=== PATIENT | female | born 1990 | race Caucasian/White ===

== ENCOUNTER 2023-10-08 18:20 | Inpatient (IN) | payer BC, SELFPAY ==
[2023-10-08 19:03] VITALS: BP 128/83; PULSE 85; PULSE 86; RESP 16; TEMP 36.6; O2SAT 98
[2023-10-08 19:08] VITALS: PULSE 87; O2SAT 97
[2023-10-08 19:09] VITALS: BMI 33.9
[2023-10-08 19:13] VITALS: PULSE 86; O2SAT 98
--- NOTE | 2023-10-08 20:23 | PM.OBHPLI ---
OB - H&P: HPI Labor/Induction History of Present Illness Time Seen by Provider: 20:23 Date Seen: 10/08/23 Chief Complaint: The patient is a 32 year old 1 para 0 at 39 weeks gestation by LMP c/w 8w3d US, who presents for induction due to chronic hypertension, well controlled this . Chief complaint: Maternity : 1 Date of last menstrual period: 01/08/23 Estimated date of delivery: 10/15/23 Gestational age based on last menstrual period: 39 Indications for induction: maternal hypertension Narrative: Erica Curry is a 32 year old 1 para 0 at 39 weeks gestation by LMP c/w 8w3d US, who presents for induction due to chronic hypertension, well controlled this . Pt has been on baby asa due to chronic hypertension. No headaches, vision changes or abdominal pain. No contractions. Good FM. No recent illness. History of Present Dating criteria: based on LMP care: good care Ultrasounds: normal 1st trimester US and abnormal US findings ( anatomy with echogenic intracardiac focus. Level 2 wnl. Parents declined serum screening) complications: chronic hypertension Labs Blood type: A (+) positive Rubella: immune RPR/VDLR: nonreactive GBS status: negative HBsAG: negative Meds Home Medications and Allergies Home Medications ?Medication ?Instructions ?Recorded ?Confirmed ?Type aspirin 81 mg chewable tablet 81 mg PO DAILY 10/08/23 10/08/23 History (Aspirin Childrens) vit no.95-ferrous 1 tab PO DAILY 10/08/23 10/08/23 History fumarate 28 mg-folic acid 800 mcg tablet () Allergies Allergy/AdvReac Type Severity Reaction Status Date / Time cefaclor [From [facility]] Allergy Intermediate Verified 10/08/23 19:12 OB - H&P: Exam Physical Exam: Vital signs: Temp Pulse Resp BP Pulse Ox 98 F 85 16 128/83 98 10/08/23 19:03 10/08/23 19:03 10/08/23 19:03 10/08/23 19:03 10/08/23 19:13 Constitutional: Constitutional: no acute distress and cooperative Routine HEENT Exam: Head: Present normal inspection Eye: Present normal appearance ENT: Present mucous membranes moist Routine Neck Exam: Neck: Present normal inspection; Absent lymphadenopathy, tenderness or thyromegaly Detailed Neck Exam: Thyroids: Thyroid: Present normal Routine Respiratory Exam: Respiratory: Present CTA bilaterally; Absent crackles or wheezes Routine Cardiovascular Exam: Cardiovascular: RRR Routine Exam: External: Present normal external exam Detailed Labor and Delivery Exam: Patient Gravid: Yes Dilation (cm): 1 Effacement (%): 20 Cervix position: anterior Consistency: medium Fetus (Single): Station: -3 Amniotic Membrane Status: intact Heart Rate Baseline: 130 Monitor Accelerations: Present Monitor Decelerations: None Coffin Maker Variability: Moderate (6-25) Routine Extremities Exam: Extremities: Absent pedal edema OB - Problem Based A/P Additional Plan (1) Chronic hypertension: Problem details: Controlled without meds throughout Status: Acute (2) Term : Status: Acute (3) Chronic hypertension affecting : Status: Acute Plan 39wk induction due to chronic htn, stage 1. -GBS negative -Cook catheter placed without difficulty -discussed inductions and variability. All ?'s answered Delivery/Labor/Induction Plan Plan: induction Induction method: Intracervical balloon catheter
[2023-10-08 21:46] VITALS: BP 127/92; PULSE 75
[2023-10-09] VITALS (28 sets, daily range): BP systolic 99–171; BP diastolic 65–104; PULSE 76–127; RESP 12–18; TEMP 36.4–36.9; O2SAT 97–99
[2023-10-09] MEDS: MORPHINE 10 MG/ML inj IM (01:55)
[2023-10-09] MEDS: hydrOXYzine pamoate 25 MG CAPSULE 100 MG PO (01:55)
[2023-10-09] MEDS: OXYTOCIN 30 unit/500 ML in NS 30 UNIT/500 ML BAG IVPB (08:34)
[2023-10-09] MEDS: LACTATED RINGERS 1000 ML 1,000 ML 125 ML IV ×3 (08:34→22:35)
[2023-10-09 08:38] LABS: Basophils Percent Auto 0.2 % (0.0-3.0); Eosinophils Percent Auto 1.2 % (0.0-7.0); Hematocrit 34.8 % (33.0-51.0); Immature Granulocytes Pct Auto 0.9 %; Lymphocytes Percent Auto 21.1 % (20-44); Mean Corpuscular HGB Conc 35 gm/dL (32-36); Mean Corpuscular Hemoglobin 29 pg (26-34); Mean Corpuscular Volume 85 fL (80-100); Monocytes Percent Auto 6.4 % (0.0-11.0); Neutrophils Percent Auto 70.2 % (42.0-72.0); Platelet Count* 221 K/uL (140-440); RDW Coefficient of Variation % 12.9 % (11.5-15.5); Red Blood Count 4.08 m/uL (4.00-5.20); White Blood Count* 12.95 K/uL (4.50-11.00)
[2023-10-09 08:41] LABS: Slide Review Reflex No
--- NOTE | 2023-10-09 18:13 | P.OBPN_ITS ---
Subjective Time Seen by Provider: 12:30 Date Seen: 10/09/23 Narrative: Cook catheter removed ~0830. Cervical check 07/21. IV pitocin started, currently running at 5 mL/hr. Regular contractions on the monitor. Patient without discomfort or cramping. States she got some rest. Doing labor warm-up. Objective Vital Signs: Last Vital Signs Temp 97.8 F 10/09/23 17:15 Pulse 76 10/09/23 15:52 Resp 18 10/09/23 17:15 BP 131/72 10/09/23 15:52 Pulse Ox 98 10/08/23 19:13 Pelvic Exam Dilation (cm): 4 Effacement (%): 70 Station: -2 Contractions Monitor mode: External Contraction Frequency: 1-4 Contraction pattern: Regular Pitocin Rate (mU/min): 5 Assessment Assessment: induction ongoing Station: -2 Heart Rate Baseline: 145 Eap Specialist Variability: Moderate (6-25) Monitor Accelerations: Present Monitor Decelerations: None Plan Plan: - AROM for clear fluid - Continue IV pitocin per protocol - Epidural upon request - FHT category 1 - Anticipate vaginal delivery
[2023-10-09] MEDS: LIDOCAINE 1 % PF 30 ML INJECTION (20:40)
[2023-10-09] MEDS: fentaNYL 100 MCG/2 ML inj IVP (20:40)
--- NOTE | 2023-10-09 21:10 | W.PM.OBVAGDE ---
OB Procedure Vag Delivery Mother Details Mother Details: The patient is a 32 year-old, 1, Para 0, admitted on 10/08/23 at 39.1 Days gestation for IOL for pre-gestational hypertension. Blood pressures remained well-controlled throughout without medication. Cook catheter placed on the evening of admission. Rested overnight. Removed after 12 hours, at which time cervix was 3/30%. Transitioned to IV pitocin. AROM for clear fluid at 1230. Labor began 1430. Found to be complete at 1949. Began pushing 1950. : 1 Para: 0 Weeks Gestation: 39.1 Admission Date: 10/08/23 Additional Details Amniotic Membrane Status: AROM Amniotic Membrane Rupture Date: 10/09/23 Amniotic Membrane Rupture Time: 12:16 Amniotic Membrane Fluid Description: Clear Analgesia/Anesthesia Type: None Waterbirth: No Pitcoin: Yes Intrapartal Events: Labor Induction Induction Method: Intracervical balloon catheter Delivery augmentation: rupture of membranes Labor Onset: 14:30 Complete: 19:49 Pushin:51 Heart: heart tones during second stage were category 1 Delivery Details Delivery Date: 10/09/23 Delivery Time: 20:19 Route of delivery: Gender: Male Infant Viability: Alive; Heart Rate Present Position at Delivery: OA Delivery Details: Delivered over intact perineum via spontaneous vaginal delivery. was placed on maternal abdomen.? Cord was clamped and cut after a 30-60 second delay. Nose and mouth were bulb suctioned.? weight pending. Perineal laceration of unknown degree at the time of this report. Patient unable to tolerate bedside exam and repair. Patient will be taken to the OR by Dr. Zeina Griffiths for exam and repair of perineal laceration under anesthesia. 1 Minute Interval Total Score: 8 5 Minute Interval Total Score: 9 Additional Details Shoulder Dystocia: No Placenta Delivery Time: 20:24 Placental Delivery Description: Spontaneous Procedure Done: Global Blood Loss: 200 Blood Loss Measurement Type: QBL Bakri Used: No Sponge/Need Count Correct: Yes Cord Vessel Description: 3 Vessels Event Summary Status: Mother and infant were stable after delivery. Mom to be take to OR for perineal laceration repair shortly.
--- NOTE | 2023-10-09 21:41 | P.OBCN_ITS ---
OB - CN: HPI Date of Consult Time Seen by Provider: 21:41 Date Seen: 10/09/23 Patient: Malika Patient Consult date: 10/09/23 Requesting Physician: Clarissa Fields DO Primary Care Provider: Diana Pino MD Consult Narrative Reason for consult: vaginal repair Narrative: The patient is a 32 year old s/p spontaneous vaginal delivery at 39.1 weeks gestation. She was admitted to the [facility] on 10/08/23 for IOL due to chronic hypertension. I was ask to come help with laceration evaluation. She had an unmedicated vaginal delivery and has been unable to tolerate vaginal exam for laceration evaluation despite receiving 10 cc of lidocaine and [address] Pino is concerned for a 3 degree laceration. I tried performing an exam at bedside and she is not even able to tolerate getting into true dorsal lithotomy position. From my limited exam, it does appear like some sort of 3rd degree laceration. I recommend exam under anesthesia and laceration repair in the OR as I do not think I can do an adequate evaluation and repair given her lack of pain control. Patient is grateful for better analgesia and would prefer to go to the OR for repair as she is exhausted from her delivery and does not think she can bare more pain. Consent signed and OR team notified. History of Present complications: chronic hypertension History History 1 Elective abortions Para 0 Spontaneous abortions Hx # Term Pregnancies Ectopic pregnancies Hx # Pregnancies Multiple births Number of Living Children 0 Labs Blood type: A (+) positive Rubella: immune RPR/VDLR: nonreactive GBS status: negative HBsAG: negative OB Labs: Lab Assessment Start: 10/08/23 19:06 Freq: ONCE Status: Complete Protocol: PC.OBGBS Activity Type Activity Date Activity User E-sign Co-sign Detail Recorded Client Recorded Date Recorded By Document 10/08/23 19:06 [facility] [id number] 10/08/23 19:28 [facility] 10/08/23 19:06 Lab Assessment GBS Status negative GBS Additional Criteria None No Treatment Needed OK Are Labs Available Yes Maternal Blood Type A Maternal RH Factor Positive Hepatitis B Surface Antigen Negative Maternal HIV Status Negative Maternal Syphillis (RPR) Status Negative PFSH PFSH Surgical History (Updated 10/08/23 @ 20:44 by Clarissa A Stortz, DO) Hx of tympanostomy tubes ?Z98.890 - Other specified postprocedural states (ICD-10) Social History What is your current living situation?: I presently have a place to live Problems where you live: no known problems In the past 12 months, utilities in danger of being shut off: no In past 12 months, lack of transportation kept you from medical appts, meetings, work, or getting things needed for daily living: no In the past 12 mos, have been you worried that your food would run out before you had money to buy more?: never true In the past 12 mos, the food you bought just didn't last and you didn't have money to buy more?: never true Smoking Status: Former smoker How often does anyone, including family, friends and others, physically hurt you : never How often does anyone, including family, friends and others, insult or talk down to you: never How often does anyone, including family, friends and others, threaten you with harm: never How often does anyone, including family, friends and others, scream or curse at you: never Meds Home Medications and Allergies Home Medications ?Medication ?Instructions ?Recorded ?Confirmed ?Type aspirin 81 mg chewable tablet 81 mg PO DAILY 10/08/23 10/08/23 History (Aspirin Childrens) vit no.95-ferrous 1 tab PO DAILY 10/08/23 10/08/23 History fumarate 28 mg-folic acid 800 mcg tablet () Allergies Allergy/AdvReac Type Severity Reaction Status Date / Time cefaclor [From [facility]] Allergy Intermediate Verified 10/08/23 19:12 OB - H&P: Exam Physical Exam: Vital signs: Temp Pulse Resp BP Pulse Ox 97.8 F 82 17 129/71 98 10/09/23 19:36 10/09/23 21:34 10/09/23 19:36 10/09/23 21:34 10/08/23 19:13 OB - Results Labs Labs: Short CBC 10/09/23 Range/Units 08:41 WBC 12.95 H (4.50-11.00) K/uL Hgb 12.0 (12.0-16.0) gm/dL Hct 34.8 (33.0-51.0) % Plt Count 221 (140-440) K/uL OB - CN: A/P Assessment and Plan (1) Chronic hypertension: Problem details: Controlled without meds throughout Status: Acute (2) Term : Status: Acute (3) Chronic hypertension affecting : Status: Acute
--- NOTE | 2023-10-09 22:11 | PM.PROC ---
Procedure Note Time Seen by Provider: 20:45 Date Seen: 10/09/23 Date of procedure: 10/09/23 Will [facility] bill your pro fee for this procedure?: Yes Pre-op diagnosis: 1. 3rd degree laceration 2. Intolerance to vaginal exam Post-op diagnosis: same Procedure: 1. Exam under anesthesia 2. 3B laceration repair Procedure Description: The patient was taken to the operating room where spinal anesthesia was administered. She was prepared and draped in normal sterile fashion in the dorsal lithotomy position in yellow fin stirrups, taking care to avoid lower extremity hyperextension, hyperflexion or compression. A surgical time-out was performed with the entire operative staff per protocol. Perioperative antibiotics were given and pneumoboots were placed and activated. EUA revealed the above findings. Bladder was drained with a straight catheter. Perineum inspected and a 3b laceration was noted. The patient was given a dose of 900 mg of clindamycin and 5mg/kg of gentamicin, rectal exam performed to confirm tear and internal anal sphincter identified and intact with >50% avulsion of the external anal sphincter. Operators? gloves changed. Attention was then turned to the anal sphincter. Susanna clamps were placed on the disrupted edges, and 0 vicryl used to reapproximate the sphincter in an interrupted fashion with three figures of 8. Before these were tied down a rectal exam confirmed no retained sutures in the rectum and good sphincter tone with tightening of the sutures. Additional deep stitches were placed proximal to the sphincter to provide for a more substantial perineal body. The remainder of the tear was repaired as a typical 2nd degree laceration with a running 2-0 vicryl stitch. There was no involvement of the anal mucosa. The skin was closed with 2-0 vicryl. Excellent hemostasis was noted. Vulvovaginal tissue noted to be very dry. Premarin cream applied to repair as patient will be exclusively . Following the repair, she was counseled on the procedure and precautions for care. Strong bowel regimen instructions reviewed. A rectal exam was performed at the beginning and end of repair and was without e/o suture through rectum or sphincter injury. All instruments were removed. Debrief performed per protocol. The patient tolerated the procedure well. Sponge, lap and needle counts were correct x 2. The patient was taken to the recovery room in stable condition. Anesthesia: spinal Surgeon: Zeina Griffiths MD Estimated blood loss (mL): 50 IV fluids (mL): 800 Urine output (mL): 300 Pathology: none sent Condition: stable Disposition: floor
[2023-10-09] MEDS: CLINDAMYCIN 900 MG/50 ML-D5W 900 MG/50 ML PIGGYBACK 100 MG IVPB (22:13)
--- NOTE | 2023-10-09 22:30 | SUR.OPER ---
PATIENT QUESTIONS ANSWERED SATISFACTORILY PREOPERATIVELY. PATIENT BROUGHT TO OR #4 PER OB CART. Patient positioned supine on OR #4 bed.? Pt. legs then moved into the lithotomy position for the procedure. Perioperative team supported arms bilaterally on arm boards.? Final approval of positioning by surgeon.
[2023-10-09] MEDS: ESTROGENS, CONJUGATED VAGINAL 0.625 MG/G CREAM 1 APPLIC VAGINAL (22:47)
--- NOTE | 2023-10-09 23:01 | P.ANES_ITS ---
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
[2023-10-10] VITALS (12 sets, daily range): BP systolic 102–130; BP diastolic 60–103; PULSE 69–134; RESP 12–18; TEMP 36.6–37.2; O2SAT 96–99
[2023-10-10 06:33] LABS: Hemoglobin* 9.7 gm/dL (12.0-16.0)
[2023-10-10] MEDS: SENNOSIDES 1 TAB TABLET PO ×2 (08:58→20:47)
[2023-10-10] MEDS: DOCUSATE SODIUM 100 MG CAPSULE PO (08:58)
[2023-10-10] MEDS: ACETAMINOPHEN 500 MG TABLET 1000 MG PO (08:58)
--- NOTE | 2023-10-10 11:41 | PM.ANPOST ---
Post Anesthesia Note Post Anesthesia Note Patient seen: Inpatient Respiratory Status: adequate Cardiovascular Status: adequate Mental Status: baseline Pain: adequate Temp: baseline Anesthetic awareness: N/A Complications: none Follow care: none
--- NOTE | 2023-10-10 12:32 | P.OBPN_ITS ---
OB - PN:Subj Subjective Time Seen by Provider: 07:45 Date Seen: 10/10/23 Patient comments OB post-: perineal pain (ice pack helping. ), tolerating diet and flatus present status: [place] feeding status: exclusively OB - PN: Obj Exam Physical Exam: Vital signs: Temp Pulse Resp BP Pulse Ox O2 Del Method 98.2 F 95 16 118/78 98 Room Air 10/10/23 11:45 10/10/23 11:45 10/10/23 11:45 10/10/23 11:45 10/10/23 11:45 10/10/23 11:45 Constitutional: Constitutional: no acute distress Routine Neck Exam: Neck: Present full ROM Routine Respiratory Exam: Respiratory: Present CTA bilaterally Routine Cardiovascular Exam: Cardiovascular: Present RRR, S1 and S2 Routine Abdominal Exam: Fundus: Present firm Routine Exam: Patient deferred: external exam Routine Neurological Exam: Neurological: Present alert and oriented X3 Urinary Catheter Management: Straight: Cath placed during this visit: yes Urethral indwelling: No Insertion date: 10/09/23 Insertion time: 22:25 OB - PN: Obj Data Labs Labs: Laboratory Results - last 24 hr 10/10/23 06:19 Hgb 9.7 L OB - PN: A/P Delivery Assessment and Plan (1) Chronic hypertension: Problem details: Controlled without meds throughout Status: Acute (2) Third degree laceration of perineum during delivery, : Problem details: Repaired under anesthesia with Dr. Griffiths-- Please see her note for details. Status: Acute Assessment and Plan: - discussed bowel regimen with both patient and bedside nurse. (3) (normal spontaneous vaginal delivery): Status: Acute Plan - routine cares - aggressive bowel regimen. Plan day: 1 Plan: routine care
[2023-10-10 18:34] LABS: Rapid Plasma Reagin (RPR) Non Reactive (Non Reactive)
[2023-10-11 00:30] VITALS: BP 129/89; PULSE 94; RESP 18; TEMP 36.4; O2SAT 98
[2023-10-11 05:35] VITALS: BP 134/89; PULSE 88; RESP 16; TEMP 36.6; O2SAT 99
--- NOTE | 2023-10-11 07:10 | P.DS_ITS ---
DS: Providers Provider Date Seen: 10/11/23 Date of admission: 10/08/23 18:20 Primary care physician: Diana Pino MD Admitting Clinician: Clarissa Fields DO Attending Physician on discharge: Clarissa Fields DO Exam Narrative: Exam Narrative: Gen: No acute distress Ext: Warm, dry, 2+ pedal pulses, no edema bilaterally. Calves non-tender to palpation. Const: Vital Signs, click to edit/add: Vital Signs - 24 hr 10/10/23 08:45 10/10/23 11:45 10/10/23 17:30 Temperature 97.8 F 98.2 F 98.3 F Pulse Rate [Right Pulse Oximeter] 74 95 90 Respiratory Rate 12 16 18 Blood Pressure [Le ft Arm] 119/78 Blood Pressure [Ri ght Arm] 118/78 122/60 Pulse Oximetry 98 98 96 Oxygen Delivery Me thod Room Air Room Air Room Air 10/10/23 21:00 10/11/23 00:30 10/11/23 05:35 Temperature 98.6 F 97.5 F L 97.8 F Pulse Rate [Right Pulse Oximeter] 81 94 88 Respiratory Rate 18 18 16 Blood Pressure [Le ft Arm] Blood Pressure [Ri ght Arm] 125/85 129/89 134/89 Pulse Oximetry 97 98 99 Oxygen Delivery Me thod Room Air Room Air Room Air OB - DS: Summary Hospital Course Hospital Course: The patient is a 32 year old G 1 P 1 at 39.1 weeks gestation that was admitted to the [facility] on 10/08/23 for IOL for chronic hypertension. She had an uncomplicated vaginal delivery. She had a 3rd degree laceration repaired by OB in the OR. She has not had a bowel movement since delivery. She delivered a viable male . She is breast feeding. the patient has done well. Peripartum Data Procedures: Procedures Operation Date: 10/09/23 22:40 Actual Procedure Side Surgeon p EXAMINE UNDER ANESTHESIA, Vaginal Laceration Repair Zeina Griffiths MD Richardson Gender: Male Status at Discharge Functional status at discharge: independent ambulation Overall status at discharge: patient is progressing back to baseline Time Spent with Patient Time attestation: Total time spent providing and/or coordinating discharge services: Discharge Plan Discharge Disposition: Home, Self-Care Date of Admission: 10/08/23 18:20 Primary Care Provider: Diana Pino I Condition: Stable Anticipated Discharge Date/Time: 10/11/23 09:00 Discharge Medications: New sennosides [Senna Lax] 8.6 mg Tablet 8.6 mg PO BID 30 Days Qty: 60 0RF docusate sodium 100 mg Capsule 100 mg PO DAILY 30 Days Qty: 30 0RF polyethylene glycol 3350 [Miralax] 17 gram/dose powder 17 g PO BID 30 Days Qty: 1020 0RF Continued PNV cmb#95-ferrous fumarate-FA [] 28 mg iron- 800 mcg tablet 1 tab PO DAILY Discontinued aspirin [Aspirin Childrens] 81 mg tablet,chewable 81 mg PO DAILY Discharge Orders: Discharge Order (Routine); Ordered 10/11/23 Ordered By: Pamela Clarke Patient Education: Perineal Tear with Delivery (DC), OB Vaginal/Breast Feeding Additional Instructions: Recommend daily stool softeners to allow for wound healing of your perineal laceration. Goal to have 1 soft, formed stool daily that is easy to pass. It is ok to cut back on the stool softeners if you are having to frequent or loose stools. Check your blood pressure daily. If it is consistently greater than 130/80, discuss with your provider. If your blood pressure is >160/110, you need to contact your provider right away and can call the center if needed. Activity Level: Activity as Tolerated Discharge Diet: Regular Follow Up Appointments: Diana Pino MD [Primary Care Provider] - Forms: [facility] Info Instructions DS:Data Additional Comments Additional comments: - Pelvic rest for 6 weeks (no intercourse, tampons or douching), or until one week after vaginal bleeding stops. She may benefit from pelvic floor physical therapy due to her 3rd degree tear. - Monitor blood pressure at home. - 3rd degree laceration - recommend stool softener for 4-6 weeks to allow for adequate wound healing - Daily activities for the first week should be limited to taking care of patient and her baby, and only as tolerated. - Call MD if fever > 100.4 degrees, bleeding more than 1 pad / hour, foul- smelling discharge, passage of golf-ball sized blood clots, or worsening of pain not controlled by medications. - Counseled on signs of post- depression
[2023-10-11] MEDS: SENNOSIDES 1 TAB TABLET PO (08:15)
[2023-10-11] MEDS: polyethylene glycoL 3350 17 GM PACK PO (08:15)
[2023-10-11] MEDS: DOCUSATE SODIUM 100 MG CAPSULE PO (08:16)
[2023-10-11 08:38] VITALS: BP 131/81; PULSE 79; RESP 18; TEMP 36.8; O2SAT 98
== END 2023-10-11 11:38 | disposition home or self-care (01) | DRG 560 ==
PROVIDERS: Obstetrics & Gynecology; Admitting Provider Family Medicine; PCP Family Medicine; Visit Provider Family Medicine
PROC: 0UQG0ZZ Repair Vagina, Open Approach (ICD-10-PCS; principal; 2023-10-09 22:30)
DX: O10.92 Unspecified pre-existing hypertension complicating childbirth (principal); O70.22 Third degree perineal laceration during delivery, IIIb; Z3A.39 39 weeks gestation of pregnancy; Z37.0 Single live birth
CPT/HCPCS: 00940; 36415; 59200; 85018; 85025; 86592; 86850; 86900; 86901; 99140; A9270; C1726; J0736; J1580; J2001; J2270; J2371; J3010; J7120